=== PATIENT | female | born 1965 | race Caucasian/White ===

== ENCOUNTER → 2021-01-02 | Outpatient (CLI) | payer OTHER ==
[2021-01-02 18:52] LABS: Basophils # (A) 0.08 X 10*3/uL (0.00-0.10); Basophils % (A) 0.8 %; Eosinophils % (A) 3.9 %; HCT 44.3 % (37.2-46.3); HGB 14.8 g/dL (12.0-15.0); Lymphocytes # (A) 2.12 X 10*3/uL (0.90-5.00); Lymphocytes % (A) 20.9 %; MCHC 33.4 g/dL (32.0-37.0); MCV 98.9 fL (80.0-97.0); Mean Platelet Volume 9.4 fL (9.5-12.2); Monocytes # (A) 0.83 X 10*3/uL (0.20-1.00); Monocytes % (A) 8.2 %; Neutrophils # (A) 6.66 X 10*3/uL (1.80-7.70); Neutrophils % (A) 65.6 %; Platelet Count 358 X 10*3/uL (140-440); RBC 4.48 X 10*6/uL (4.10-5.20); WBC 10.15 X 10*3/uL (4.50-10.00)
[2021-01-02 21:58] LABS: Erythrocyte Sedimentation Rate 24 mm/Hr (0-30)
[2021-01-03 11:24] LABS: Angiotensin-1 Converting Enz. 4 U/L (8-52)
[2021-01-03 15:46] LABS: HLA B27 POSITIVE
[2021-01-03 15:51] LABS: ALT 51 U/L (8-44); AST 47 U/L (13-35); Alkaline Phosphatase 122 U/L (41-126); C Reactive Protein 1.2 mg/dL (0.0-0.8); Globulin 2.3 g/dL (1.6-3.3); Rheumatoid Factor, Qnt 6 IU/mL (0-15); Total Bilirubin 0.5 mg/dL (0.3-1.2); Total Protein 7.6 g/dL (6.2-8.2)
[2021-01-03 16:27] LABS: Anti-Smith Ab Interp NEGATIVE (NEGATIVE)
[2021-01-10 09:21] LABS: Lysozyme, Serum or Body Fluid 8.3 mcg/mL (5.0-11.0)
== END ==
LOC: LABWHC1 11:21
PROVIDERS: ATTEND Ophthalmology
DX: H20.023 Recurrent acute iridocyclitis, bilateral (principal)
CPT/HCPCS: 36415; 80076; 82164; 83090; 84439; 84443; 84481; 85025; 85549; 85652; 86038; 86140; 86235; 86431; 86480; 86618; 86780; 86812

== ENCOUNTER → 2023-02-27 | Outpatient (CLI) | payer OTHER ==
[2023-02-27 16:33] LABS: ALT 22 U/L (8-44); AST 24 U/L (13-35); Albumin 4.5 d/dL (3.8-4.9); Albumin/Globulin Ratio 1.88 Ratio (1.60-3.17); Alkaline Phosphatase 106 U/L (41-126); Blood Urea Nitrogen 9.3 mg/dL (9.0-27.0); Calcium 9.9 mg/dL (8.7-10.3); Carbon Dioxide 28.1 mmol/L (21.6-31.8); Chloride 101 mmol/L (96-109); Globulin 2.4 d/dL (1.6-3.3); Glucose 84 mg/dL (70-110); Potassium 5.2 mmol/L (3.5-5.5); Sodium 141 mmol/L (135-145); Total Bilirubin 0.3 mg/dL (0.3-1.2); Total Protein 6.9 d/dL (6.2-8.2)
== END | disposition home or self-care (01) ==
LOC: LABWHC1 11:11
PROVIDERS: ATTEND Psychiatry & Neurology Neurology
DX: Z01.812 Encounter for preprocedural laboratory examination (principal); Z79.899 Other long term (current) drug therapy
CPT/HCPCS: 36415; 80053

== ENCOUNTER 2023-12-12 11:33 | Emergency (ER) | payer OTHER ==
[2023-12-12] MEDS ORDERED: KETOROLAC 15 MG/ML 1 ML VIAL ONE (13:02)
[2023-12-12] MEDS ORDERED: HYDROmorphone 1 MG/ML 1 ML SYRINGE ONE (13:02)
[2023-12-12] MEDS ORDERED: LIDOCAINE 4% PATCH TOPICAL ONE (13:03)
[2023-12-12] MEDS ORDERED: ACETAMINOPHEN TAB 500 MG TAB ONE (13:03)
[2023-12-12] MEDS ORDERED: dexAMETHasone 2 MG TAB ONE (13:06)
[2023-12-12] MEDS ORDERED: ACET/COD 300 MG/30 MG STARTER PACK 6 TAB BTL PO ONE (15:47)
[2023-12-12] MEDS ORDERED: IBUPROFEN 600 MG STARTER PACK 4 TAB BTL ONE (15:47)
--- NOTE | 2024-01-12 11:44 | CT ---
EXAM: CT lumbar spine without contrast. 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 TECHNIQUE: Multiple axial images were obtained from the midportion of T11 through the sacroiliac shelby nts. Soft tissue and bone windows in coronal and sagittal planes were obtained and reviewed. 3-D ref ormats of the bones were created on a separate workstation and submitted for review. One or more CT dose reduction strategies were utilized during this examination. Total DLP was 741.3 mGycm. FINDINGS: Alignment: There are 5 lumbar type vertebral bodies within normal alignment. Bone: No evidence of fracture is identified. Multilevel facet joint arthropathy, disc space level me asuring, osteophytes, and vacuum disc phenomenon. Findings worse in the lower thoracic spine. Discs: T12-L1: No significant spinal canal or neural foraminal stenosis. L1-L2: No significant spinal canal or neural foraminal stenosis. L2-L3: No significant spinal canal or neural foraminal stenosis. L3-L4: Disc bulge and facet joint arthropathy result in mild spinal canal and mild bilateral neural f oraminal stenosis. L4-L5: Disc bulge with possible central disc protrusion and facet joint arthropathy result in mild sp inal canal and mild to moderate bilateral neural foraminal stenosis. L5-S1: Disc bulge and facet joint arthropathy result in mild spinal canal and moderate to severe bila teral neural foraminal stenosis. Other: Colonic diverticula present throughout the colon. Atherosclerosis arterial vasculature. IMPRESSION: 1. No evidence of fracture of the lumbar spine. 2. Moderate to severe degenerative disc disease changes throughout the spine. No frontal stenosis wor se at L5-S1 with moderate to severe bilateral neural foraminal stenosis. 3. Disc bulge with central disc protrusion at L4-L5 mild spinal canal stenosis. 4. Colonic diverticulosis.
== END 2023-12-12 16:00 | disposition home or self-care (01) ==
LOC: EC 11:33
DX: M54.9 Dorsalgia, unspecified (principal)
CPT/HCPCS: 72131; 96372; 99283